=== PATIENT | female | born 1965 | race Caucasian/White ===

== ENCOUNTER → 2022-06-19 | Outpatient (CLI) | LOC: M SOG 07:53 | PROVIDERS: ATTEND Orthopaedic Surgery | DX: M19.042 Primary osteoarthritis, left hand (principal); M79.642 Pain in left hand ==

== ENCOUNTER → 2022-08-04 | Outpatient (CLI) | LOC: M SOG 09:00 | PROVIDERS: ATTEND Orthopaedic Surgery | DX: M17.12 Unilateral primary osteoarthritis, left knee (principal); M25.561 Pain in right knee ==

== ENCOUNTER → 2022-08-13 | Outpatient (CLI) | payer SELFPAY | LOC: M SOG 07:58 | PROVIDERS: ATTEND Orthopaedic Surgery | DX: M25.561 Pain in right knee (principal); M25.562 Pain in left knee ==

== ENCOUNTER → 2022-11-16 | Outpatient (CLI) | payer OTHER, SELFPAY ==
[~2022-11-16] MED LIST: ADV500INH INH; ALBU90AE IH; CETI10CH PO; CVS1CHW13 PO; MONT-5 PO; OMEP1CAP73 PO
== END ==
LOC: M LABSMTC 11:03
PROVIDERS: ATTEND Anesthesiology
DX: Z01.812 Encounter for preprocedural laboratory examination (principal); Z20.822 Contact with and (suspected) exposure to COVID-19

== ENCOUNTER 2022-11-20 06:48 | Day surgery (SDC) | payer OTHER ==
[~2022-11-20] VITALS: Ht 167.6 cm; Wt 95.7 kg
[2022-11-20] MEDS ORDERED: SODIUM BICARBONATE 8.4% INJ 50MEQ 50ML VIAL XX ONE (07:30)
[2022-11-20] MEDS ORDERED: LIDOCAINE W/EPINEPHRINE 1% 20ML VIAL XX ONE (07:30)
[2022-11-20] MEDS ORDERED: BACITRACIN OINTMENT 30GM TUBE As Ordered ONE (08:29)
[2022-11-20 09:10] VITALS: BP 144/74
== END 2022-11-20 09:25 | disposition home or self-care (01) ==
LOC: M SDC 06:48
PROVIDERS: ATTEND Orthopaedic Surgery Hand Surgery
DX: M65.341 Trigger finger, right ring finger (principal); J45.909 Unspecified asthma, uncomplicated; K21.9 Gastro-esophageal reflux disease without esophagitis; Z79.899 Other long term (current) drug therapy; Z79.51 Long term (current) use of inhaled steroids; Z88.2 Allergy status to sulfonamides; Z88.5 Allergy status to narcotic agent; Z88.8 Allergy status to other drugs, medicaments and biological substances

== ENCOUNTER → 2023-09-08 | Outpatient (CLI) | payer OTHER | LOC: M SOG 07:55 | PROVIDERS: ATTEND Orthopaedic Surgery | DX: M13.812 Other specified arthritis, left shoulder (principal); M25.511 Pain in right shoulder ==

== ENCOUNTER → 2023-10-06 | Outpatient (CLI) | payer OTHER | LOC: M SOG 08:18 | PROVIDERS: ATTEND Orthopaedic Surgery | DX: M17.12 Unilateral primary osteoarthritis, left knee (principal); M25.561 Pain in right knee ==

== ENCOUNTER → 2025-01-08 | Outpatient (CLI) | payer OTHER ==
[~2025-01-08] MED LIST changes: -ADV500INH INH; +ADVA1AER10 INH; -ALBU90AE IH; +ALBU90AE2 IH; +ISOVUE-300 61% 100ML VIAL As Ordered ONE; +LIDOCAINE 1% MDV 20ML VIAL As Ordered ONE; +methylPREDNISolone SUSP 40MG/ML 1ML VIAL (DEPO MEDROL) As Ordered ONE
== END ==
LOC: M RAD 13:52
PROVIDERS: ATTEND Orthopaedic Surgery
DX: M19.011 Primary osteoarthritis, right shoulder (principal)
CPT/HCPCS: 20610; 77002; J0665; J1010; Q9967